=== PATIENT | female | born 1980 | race Caucasian/White ===

== ENCOUNTER 2019-02-28 20:38 | Emergency (ER) | payer MEDICAID ==
[~2019-02-28] VITALS: Ht 154.9 cm; Wt 96.3 kg
[2019-02-28 20:48] VITALS: Ht 154.9 cm; Wt 96.3 kg
[2019-02-28] MEDS ORDERED: morphine 4 MG/ML VIAL IV STA (23:32)
[2019-02-28] MEDS ORDERED: ONDANSETRON 4 MG INJ IV STA (23:32)
[2019-02-28] MEDS ORDERED: SOD CHLORIDE 0.9% 1,000 ML IV STA (23:32)
[2019-03-01] MEDS ORDERED: TRAM50TA2 PO (02:25)
[2019-03-01] MEDS ORDERED: ONDA4TAB14 PO (02:25)
--- NOTE | 2019-03-01 02:28 | ERD ---
ER Documentation Chief Complaint Chief Complaint left side flank pain x10 days. denies n/v HPI This is a very +39-year-old female comes a left-sided flank pain for 10 days. Pain is mild to moderate intensity worse with movement. She denies nausea vomiting or urgency and frequency of urination. Denies fevers or chills. Denies any direct trauma. Denies any other current complaints. No recent travel. No sick contacts. ROS All systems reviewed and are negative except as per history of present illness. Medications Home Meds Active Scripts Ondansetron (Ondansetron Odt) 4 Mg Tab.rapdis, 4 MG PO Q6H PRN for NAUSEA AND/OR VOMITING, #10 TAB Prov:AYANNA MCKOY 03/01/19 Tramadol HCl (Tramadol HCl) 50 Mg Tablet, 50 MG PO Q4 PRN for PAIN, #20 TAB Prov:AYANNA MCKOY. 03/01/19 Allergies Allergies: Coded Allergies: No Known Allergy (Verified , 02/28/19) PMhx/Soc Medical and Surgical Hx: pt denies Medical Hx, pt denies Surgical Hx Hx Alcohol Use: No Hx Substance Use: No Hx Tobacco Use: No Smoking Status: Never smoker Physical Exam Vitals Vital Signs Date Temp Pulse Resp B/P (MAP) Pulse Ox O2 O2 Flow FiO2 Time Delivery Rate 03/01/19 76 16 128/88 99 Room Air 00:23 (101) 02/28/19 98.4 95 20 142/82 95 20:48 (102) Physical Exam Const: No acute distress Head: Atraumatic Eyes: Normal Conjunctiva ENT: Normal External Ears, Nose and Mouth. Neck: Full range of motion. No meningismus. Resp: Clear to auscultation bilaterally Cardio: Regular rate and rhythm, no murmurs Abd: Soft, non tender, non distended. Normal bowel sounds Skin: No petechiae or rashes Back: No midline or flank tenderness Ext: No cyanosis, or edema Neur: Awake and alert Psych: Normal Mood and Affect Result Diagram: 02/28/19 9793 02/28/19 4134 Results 24 hrs Laboratory Tests Test 02/28/19 23:45 02/28/19 23:50 White Blood Count 10.7 10^3/ul Red Blood Count 5.02 10^6/ul Hemoglobin 12.8 g/dl Hematocrit 39.8 % Mean Corpuscular Volume 79.3 fl Mean Corpuscular Hemoglobin 25.5 pg Mean Corpuscular Hemoglobin Concent 32.2 g/dl Red Cell Distribution Width 13.2 % Platelet Count 321 10^3/UL Mean Platelet Volume 10.8 fl Immature Granulocytes % 0.400 % Neutrophils % 52.9 % Lymphocytes % 37.8 % Monocytes % 6.3 % Eosinophils % 1.9 % Basophils % 0.7 % Nucleated Red Blood Cells % 0.0 /100WBC Immature Granulocytes # 0.040 10^3/ul Neutrophils # 5.7 10^3/ul Lymphocytes # 4.1 10^3/ul Monocytes # 0.7 10^3/ul Eosinophils # 0.2 10^3/ul Basophils # 0.1 10^3/ul Nucleated Red Blood Cells # 0.0 10^3/ul Urine Color YELLOW Urine Clarity CLEAR Urine pH 5.0 Urine Specific [place] 1.017 Urine Ketones NEGATIVE mg/dL Urine Nitrite NEGATIVE mg/dL Urine Bilirubin NEGATIVE mg/dL Urine Urobilinogen NEGATIVE mg/dL Urine Leukocyte Esterase NEGATIVE Josselin/ul Urine Microscopic RBC 0 /HPF Urine Microscopic WBC 1 /HPF Urine Squamous Epithelial Cells FEW /HPF Urine Bacteria FEW /HPF Urine Hemoglobin 1+ mg/dL Urine Glucose NEGATIVE mg/dL Urine Total Protein NEGATIVE mg/dl Sodium Level 138 mmol/L Potassium Level 4.5 mmol/L Chloride Level 103 mmol/L Carbon Dioxide Level 23 mmol/L Anion Gap 12 Blood Urea Nitrogen 11 mg/dl Creatinine 0.41 mg/dl Est Glomerular Filtrat Rate mL/min > 60 mL/min Glucose Level 204 mg/dl Calcium Level 9.3 mg/dl Total Bilirubin 0.1 mg/dl Direct Bilirubin 0.00 mg/dl Indirect Bilirubin 0.1 mg/dl Aspartate Amino Transf (AST/SGOT) 53 IU/L Alanine Aminotransferase (ALT/SGPT) 58 IU/L Alkaline Phosphatase 94 IU/L Total Protein 7.6 g/dl Albumin 4.1 g/dl Globulin 3.50 g/dl Albumin/Globulin Ratio 1.17 Lipase 98 U/L POC Beta HCG, Qualitative NEGATIVE Current Medications Medications Dose Sig/Otilia Start Time Status Last (Trade) Ordered Route PRN Stop Time Admin Dose Reason Admin Sodium 1,000 ml @ Q1H STAT 02/28/19 DC 03/01/19 Chloride 1,000 mls/hr IV 23:32 03/01/19 00:13 00:31 Morphine 4 mg ONCE STAT 02/28/19 DC 03/01/19 Sulfate IV 23:32 02/28/19 00:13 (morphine) 23:34 Ondansetron 4 mg ONCE STAT 02/28/19 DC 03/01/19 HCl (Zofran IV 23:32 02/28/19 00:13 Inj) 23:34 Procedures/MDM Medical decision making: Patient's gastrointestinal symptoms have stabilized while in the department. No evidence of severe dehydration, sepsis, or surgical abdomen. Extensive discussion with family and patient that occult disease cannot be ruled out. 8 hour recheck for repeat abdominal exam is planned. Departure Diagnosis: Primary Impression: Flank pain Condition: Stable Patient Instructions: Flank Pain, Uncertain Cause AYANNA MCKOY Mar 01, 2019 02:28
[2019-03-01 03:15] VITALS: BP 104/74; PULSE 77; RESP 17
== END 2019-03-01 03:25 | disposition home or self-care (01) ==
LOC: E/R 20:38
DX: R10.9 Unspecified abdominal pain (principal)
CPT/HCPCS: 36415; 74176; 80053; 81001; 81025; 83690; 85025; 96374; 96375; J2270; J2405; J7030; Z7502